=== PATIENT | female | born 1940 | race African-American/Black ===

== ENCOUNTER 2021-05-31 12:44 | Inpatient (IN) | payer MEDICARE, MEDICAID ==
[~2021-05-31] VITALS: Ht 165.1 cm; Wt 77.1 kg
[2021-05-31 16:29] LABS: CHLORIDE 115 mEq/L (98-107)
[2021-05-31] MEDS ORDERED: ONDANSETRON HCL 4MG/2ML INJ IV ONE (16:45)
[2021-05-31] MEDS ORDERED: ACETAMINOPHEN 325MG TABLET PO ONE (16:45)
[2021-05-31 17:32] LABS: BASOPHILS % 0.7 % (0.0-2.0); HEMATOCRIT. 33.1 % (36.0-48.0); LYMPHOCYTES % 40.8 % (20.0-50.0); MEAN CORPUSCULAR HEMOGLOBIN 32.6 pg (28.0-32.0); MEAN CORPUSCULAR VOLUME 97.7 fL (81.0-99.0); MONOCYTES % 7.5 % (2.0-8.0); RED BLOOD CELL COUNT 3.39 mill/uL (4.2-5.4); RED CELL DISTRIBUTION WIDTH 13.7 % (11.6-14.6)
[2021-05-31 17:38] LABS: INR 1.3; PROTHROMBIN TIME 13.3 sec (9.6-11.0)
[2021-05-31 19:22] LABS: PLATELET 121 x1000/uL (130-400)
[2021-05-31] MEDS ORDERED: NALOXONE HCL 0.4MG/ML VIAL IV PRN (23:45)
[2021-05-31] MEDS: HYDROCODONE/ACETAMINOPHEN 10/325MG TABLET PO PRN (23:52)
[2021-06-01] MEDS: HYDROCODONE/ACETAMINOPHEN 10/325MG TABLET PO PRN ×2 (07:37→16:00)
[2021-06-01] MEDS ORDERED: ONDANSETRON 4MG/5ML UDC PO NR (09:00)
[2021-06-01] MEDS ORDERED: AMLODIPINE 10MG TABLET PO SCH ×2 (09:00→17:15)
[2021-06-01 12:00] VITALS: BP 110/69
[2021-06-01 14:00] VITALS: BP 110/69
[2021-06-01] MEDS ORDERED: ONDANSETRON HCL 4MG/2ML INJ IV PRN (14:15)
[2021-06-01] MEDS ORDERED: HYDR-4001 PO (16:43)
[2021-06-01] MEDS ORDERED: FURO20TA4 PO (16:43)
[2021-06-01] MEDS ORDERED: BUSP7.5T7 PO (16:43)
[2021-06-01] MEDS ORDERED: BUSP15TA3 PO (16:43)
[2021-06-01] MEDS ORDERED: MIRT-89 PO (16:43)
[2021-06-01] MEDS ORDERED: ACETAMINOPHEN/COD (16:43)
[2021-06-01] MEDS ORDERED: TRAZ-252 PO (16:43)
[2021-06-01] MEDS ORDERED: APIX5TAB PO (16:43)
[2021-06-01] MEDS ORDERED: TIZA4TAB5 PO (16:43)
[2021-06-01] MEDS ORDERED: [UNRECOGNIZED DRUG - MIXTURE] (16:43)
[2021-06-01] MEDS ORDERED: SULF1TAB44 PO (16:43)
[2021-06-01] MEDS ORDERED: DIAZ10TA4 PO (16:43)
[2021-06-01] MEDS ORDERED: LEVE750T10 PO (16:43)
[2021-06-01] MEDS ORDERED: FLUT16SP15 (16:43)
[2021-06-01] MEDS ORDERED: GABA-532 PO (16:43)
[2021-06-01] MEDS ORDERED: DIAZ5TAB4 PO (16:43)
[2021-06-01] MEDS ORDERED: MEMA10TA55 PO (16:43)
[2021-06-01] MEDS ORDERED: CLON0.1T PO (16:43)
[2021-06-01] MEDS ORDERED: LUBI24CA5 PO (16:43)
[2021-06-01] MEDS ORDERED: OLAN5TAB74 PO (16:43)
[2021-06-01] MEDS ORDERED: LEVE10006 PO (16:43)
[2021-06-01] MEDS ORDERED: LETR2.5T7 PO (16:43)
[2021-06-01] MEDS ORDERED: AMLO5TAB88 PO (16:43)
[2021-06-01] MEDS ORDERED: DOXA1TAB2 PO (16:43)
[2021-06-01] MEDS ORDERED: HYDR100T31 PO (16:43)
[2021-06-01] MEDS ORDERED: ZONI100C45 PO (16:43)
[2021-06-01] MEDS ORDERED: ESCI-7 PO (16:43)
[2021-06-01 16:59] LABS: CLARITY URINE CLEAR (CLEAR); COLOR URINE YELLOW (YELLOW); KETONES URINE TRACE (NEGATIVE); LEUKOCYTE ESTERASE URINE NEGATIVE (NEGATIVE); NITRITE URINE NEGATIVE (NEGATIVE); OCCULT BLOOD URINE NEGATIVE (NEGATIVE); PROTEIN URINE 2+ (NEGATIVE); SPECIFIC GRAVITY URINE 1.017 (1.005-1.030)
[2021-06-01] MEDS ORDERED: ACETAMINOPHEN 500MG TABLET PO PRN (17:30)
[2021-06-01] MEDS ORDERED: CLONIDINE 0.1MG TABLET PO PRN (17:30)
[2021-06-01] MEDS ORDERED: FLUTICASONE PROPIONATE 50MCG/SPRAY BOTTLE BOTHNSTRLS PRN (17:30)
[2021-06-01] MEDS ORDERED: SENNOSIDES/DOCUSATE SOD 8.6/50MG TABLET PO PRN (17:30)
[2021-06-01] MEDS ORDERED: ACETAMINOPHEN 650MG/20.3ML UDC PO PRN (17:30)
[2021-06-01] MEDS ORDERED: MAGNESIUM HYDROXIDE 400MG/5ML 30ML UDC PO PRN (17:30)
[2021-06-01] MEDS: APIXABAN 5 MG TABLET PO SCH (18:19)
[2021-06-01] MEDS: TIZANIDINE HCL 2MG TABLET PO SCH (18:19)
[2021-06-01] MEDS: AMLODIPINE 5MG TABLET PO SCH (18:20)
[2021-06-01] MEDS: GABAPENTIN 300MG CAPSULE PO SCH (18:20)
[2021-06-01 20:00] VITALS: BP 151/71
[2021-06-01] MEDS ORDERED: BUSPIRONE HCL 10MG TABLET PO SCH (21:00)
[2021-06-01] MEDS: FAMOTIDINE 20MG TABLET PO SCH (21:05)
[2021-06-01] MEDS: HYDRALAZINE HCL 100MG TABLET PO SCH (21:05)
[2021-06-01] MEDS: LEVETIRACETAM 500MG TABLET PO SCH (21:06)
[2021-06-01] MEDS: DOXAZOSIN MESYLATE 2MG TABLET PO SCH (21:07)
[2021-06-01] MEDS: BUSPIRONE HCL 5MG TABLET PO SCH (21:07)
[2021-06-01] MEDS: MIRTAZAPINE 15MG TABLET PO SCH (21:08)
[2021-06-02] VITALS: BP 121/58
[2021-06-02 04:00] VITALS: BP 137/99
[2021-06-02 07:56] VITALS: BP 148/72
[2021-06-02] MEDS: LEVETIRACETAM 500MG TABLET PO SCH ×2 (08:49→20:51)
[2021-06-02] MEDS: HYDRALAZINE HCL 100MG TABLET PO SCH ×2 (08:50→20:49)
[2021-06-02] MEDS: FUROSEMIDE 20MG TABLET PO SCH (08:50)
[2021-06-02] MEDS: BUSPIRONE HCL 5MG TABLET PO SCH ×2 (08:50→20:51)
[2021-06-02] MEDS: APIXABAN 5 MG TABLET PO SCH ×2 (08:51→17:43)
[2021-06-02] MEDS: TIZANIDINE HCL 2MG TABLET PO SCH ×2 (08:51→17:43)
[2021-06-02] MEDS: DOCUSATE SODIUM 100MG CAPSULE PO SCH (08:51)
[2021-06-02] MEDS: ZONISAMIDE 100MG CAPSULE PO SCH (08:52)
[2021-06-02] MEDS: AMLODIPINE 5MG TABLET PO SCH (08:52)
[2021-06-02] MEDS: GABAPENTIN 300MG CAPSULE PO SCH ×2 (08:53→17:43)
[2021-06-02] MEDS: LETROZOLE 2.5MG TABLET PO SCH (09:00)
[2021-06-02] MEDS ORDERED: APIXABAN 5 MG TABLET PO SCH (09:00)
[2021-06-02 12:00] VITALS: BP 125/56
[2021-06-02 16:00] VITALS: BP 147/66
[2021-06-02] MEDS: HYDROCODONE/ACETAMINOPHEN 5/325MG TABLET PO PRN (16:31)
[2021-06-02 20:00] VITALS: BP 106/53
[2021-06-02] MEDS: DOXAZOSIN MESYLATE 2MG TABLET PO SCH (20:49)
[2021-06-02] MEDS: MIRTAZAPINE 15MG TABLET PO SCH (20:51)
[2021-06-02] MEDS: FAMOTIDINE 20MG TABLET PO SCH (20:51)
[2021-06-03] VITALS: BP 146/56
[2021-06-03 04:00] VITALS: BP 137/57
[2021-06-03 06:21] VITALS: BP_SYST 137; BP_SYST 139; BP_DIAS 58; BP_DIAS 87
[2021-06-03 08:00] VITALS: BP 139/58
[2021-06-03] MEDS: APIXABAN 5 MG TABLET PO SCH (09:02)
[2021-06-03] MEDS: ZONISAMIDE 100MG CAPSULE PO SCH (09:02)
[2021-06-03] MEDS: GABAPENTIN 300MG CAPSULE PO SCH (09:02)
[2021-06-03] MEDS: BUSPIRONE HCL 5MG TABLET PO SCH (09:02)
[2021-06-03] MEDS: FUROSEMIDE 20MG TABLET PO SCH (09:02)
[2021-06-03] MEDS: HYDRALAZINE HCL 100MG TABLET PO SCH (09:02)
[2021-06-03] MEDS: DOCUSATE SODIUM 100MG CAPSULE PO SCH (09:02)
[2021-06-03] MEDS: LETROZOLE 2.5MG TABLET PO SCH (09:02)
[2021-06-03] MEDS: LEVETIRACETAM 500MG TABLET PO SCH (09:02)
[2021-06-03] MEDS: AMLODIPINE 5MG TABLET PO SCH (09:03)
[2021-06-03] MEDS: TIZANIDINE HCL 2MG TABLET PO SCH (09:03)
[2021-06-03 12:00] VITALS: BP 118/59
[2021-06-03 12:50] VITALS: BP 135/59
[2021-06-03] MEDS: HYDROCODONE/ACETAMINOPHEN 5/325MG TABLET PO PRN (12:50)
== END 2021-06-03 16:30 | DRG 392 ==
LOC: ER 13:08 → MICUSO 20:30 → 6EST 06-01 12:34
PROVIDERS: ADMIT Internal Medicine; ATTEND Internal Medicine
DX: K52.9 Noninfective gastroenteritis and colitis, unspecified (principal); E44.0 Moderate protein-calorie malnutrition; I82.511 Chronic embolism and thrombosis of right femoral vein; D64.9 Anemia, unspecified; I10 Essential (primary) hypertension; E87.8 Other disorders of electrolyte and fluid balance, not elsewhere classified; I48.91 Unspecified atrial fibrillation; K21.9 Gastro-esophageal reflux disease without esophagitis; E78.5 Hyperlipidemia, unspecified; G40.909 Epilepsy, unspecified, not intractable, without status epilepticus; E78.00 Pure hypercholesterolemia, unspecified; F03.90 Unspecified dementia, unspecified severity, without behavioral disturbance, psychotic disturbance, mood disturbance, and anxiety; M19.90 Unspecified osteoarthritis, unspecified site; F32.A Depression, unspecified; Z20.822 Contact with and (suspected) exposure to COVID-19; Z68.27 Body mass index [BMI] 27.0-27.9, adult; Z86.73 Personal history of transient ischemic attack (TIA), and cerebral infarction without residual deficits; Z88.6 Allergy status to analgesic agent; Z88.1 Allergy status to other antibiotic agents; Z88.0 Allergy status to penicillin; Z88.5 Allergy status to narcotic agent; Z68.28 Body mass index [BMI] 28.0-28.9, adult
CPT/HCPCS: 36415; 74176; 80053; 81003; 85025; 87426; 93970; 99285; J2405

== ENCOUNTER 2024-02-28 13:25 | Emergency (ER) | payer MEDICARE, MEDICAID ==
[~2024-02-28] VITALS: Ht 165.1 cm; Wt 81.0 kg
[~2024-02-28 13:25] MED LIST: ACETAMINOPHEN/COD; AMLO5TAB88 PO; APIX5TAB PO; BUSP15TA3 PO; BUSP7.5T7 PO; CLON0.1T PO; DIAZ10TA4 PO; DIAZ5TAB4 PO; DOXA1TAB2 PO; ESCI-7 PO; FLUT16SP15; FURO20TA4 PO; GABA-532 PO; HYDR-4001 PO; HYDR100T31 PO; LETR2.5T7 PO; LEVE10006 PO; LEVE750T10 PO; LUBI24CA5 PO; MEMA10TA20 PO; MIRT-89 PO; OLAN5TAB74 PO; SULF1TAB44 PO; TIZA-204 PO; TRAZ-252 PO; ZONI100C45 PO; [UNRECOGNIZED DRUG - MIXTURE]
[2024-02-28 13:34] VITALS: O2SAT 97
[2024-02-28 15:56] LABS: BASOPHILS % 0.6 % (0.0-2.0); DIFFERENTIAL COMMENT 0; EOSINOPHILS % 3.2 % (0.0-5.0); HEMATOCRIT. 31.9 % (36.0-48.0); HEMOGLOBIN. 10.7 g/dL (12.0-16.0); LYMPHOCYTES % 31.7 % (20.0-50.0); MEAN CORPUSCULAR HEMOGLOBIN 34.2 pg (28.0-32.0); MEAN CORPUSCULAR HGB CONC 33.6 g/dL (31.0-37.0); MEAN CORPUSCULAR VOLUME 101.7 fL (81.0-99.0); MEAN PLATELET VOLUME 7.7 fl (7.4-10.4); MONOCYTES % 10.2 % (2.0-8.0); NEUTROPHILS % 54.3 % (40.0-76.0); PLATELET 241 x1000/uL (130-400); RED BLOOD CELL COUNT 3.14 mill/uL (4.2-5.4); RED CELL DISTRIBUTION WIDTH 15.7 % (11.6-14.6); WHITE BLOOD COUNT 5.7 x1000/uL (4.5-11.0)
[2024-02-28 16:04] LABS: CHLORIDE 106 mEq/L (98-107); POTASSIUM 4.2 mEq/L (3.5-5.1); SODIUM 140 mEq/L (136-145)
[2024-02-28 16:05] LABS: CALCIUM 10.4 mg/dL (8.7-10.4); CARBON DIOXIDE 26 mEq/L (21-32); INR 1.2
[2024-02-28 16:10] LABS: CREATININE 1.3 mg/dL (0.6-1.0); GLUCOSE 98 mg/dL (70-105); UREA NITROGEN BLOOD 22 mg/dL (9-23)
[2024-02-28 16:11] LABS: TROPONIN I HIGH SENSITIVITY 4 ng/L (3.0-34)
[2024-02-28 17:48] LABS: CLARITY URINE CLOUDY (CLEAR); COLOR URINE YELLOW (YELLOW); GLUCOSE URINE NEGATIVE (NEGATIVE); KETONES URINE NEGATIVE (NEGATIVE); LEUKOCYTE ESTERASE URINE NEGATIVE (NEGATIVE); NITRITE URINE NEGATIVE (NEGATIVE); OCCULT BLOOD URINE NEGATIVE (NEGATIVE); PROTEIN URINE NEGATIVE (NEGATIVE); SPECIFIC GRAVITY URINE 1.008 (1.005-1.030); UROBILINOGEN URINE 0.2 E.U./dL (0.2-1.0)
[2024-02-28 18:04] LABS: BACTERIA URINE 4+; RBC URINE 0-2 /hpf (0-2); WBC URINE 0-2 /hpf (0-2)
[2024-02-28 18:05] LABS: SQUAMOUS EPITHELIAL CELL URINE 1+ /lpf (RARE/1+)
[2024-02-28] MEDS: MINERAL OIL ENEMA 133ML PR ONE (19:18)
[2024-02-28 20:36] VITALS: BP 127/72; PULSE 92; RESP 16; TEMP 37.00296; O2SAT 97
== END 2024-02-28 20:46 | disposition home or self-care (01) ==
LOC: ER 13:25 → CANBEDREQ 18:31 → ER 20:46
DX: K59.00 Constipation, unspecified (principal); J44.9 Chronic obstructive pulmonary disease, unspecified; N28.9 Disorder of kidney and ureter, unspecified; E78.00 Pure hypercholesterolemia, unspecified; I48.91 Unspecified atrial fibrillation; F32.A Depression, unspecified; F03.90 Unspecified dementia, unspecified severity, without behavioral disturbance, psychotic disturbance, mood disturbance, and anxiety; Z88.0 Allergy status to penicillin; Z88.6 Allergy status to analgesic agent; Z88.1 Allergy status to other antibiotic agents; Z88.5 Allergy status to narcotic agent; Z79.899 Other long term (current) drug therapy; Z98.890 Other specified postprocedural states; Z86.73 Personal history of transient ischemic attack (TIA), and cerebral infarction without residual deficits
CPT/HCPCS: 36415; 71045; 74176; 80048; 81003; 84484; 85025; 93005; 99285